=== PATIENT | female | born 1950 | race Caucasian/White ===

== ENCOUNTER 2017-07-27 05:44 | Day surgery (SDC) | payer MEDICARE, BC ==
[2017-07-26 10:32] VITALS: BMI 33.7
[2017-07-27] MEDS ORDERED: Thrombin 5000 UNITS/5 ML VIAL ONE (06:17)
[2017-07-27] MEDS ORDERED: Sodium Chloride 0.9% 10 ML ONE (06:17)
[2017-07-27] MEDS ORDERED: Bupivacaine/Epinephrine 0.25% 30 ML VIAL ONE (06:17)
[2017-07-27 06:35] LABS: Hematocrit 38.8 % (36.0-47.0); Mean Platelet Volume 7.8 fL (7.4-10.4); Red Blood Cell (RBC) Count 4.26 mill/uL (4.20-5.40); White Blood Cell (WBC) Count 9.6 thou/uL (4.8-10.8)
[2017-07-27] MEDS ORDERED: Phenylephrine 10 MG/NS 250 ML 0 ML ONE (06:39)
[2017-07-27] MEDS ORDERED: Famotidine/PF 20 mg/2ml Vial ONE (06:39)
[2017-07-27] MEDS ORDERED: Albumin 5% 0 ML ONE (06:39)
[2017-07-27 06:43] LABS: PTT 36.5 SEC (22.9-36.1)
[2017-07-27] MEDS ORDERED: Midazolam HCl 2 mg/2 ml Vial ONE (06:47)
[2017-07-27] MEDS ORDERED: CEFAZOLIN/Water 2 GM/20 ML SYRINGE ONE (06:47)
--- NOTE | 2017-07-27 06:55 | HP ---
: 1950 HISTORY OF PRESENT ILLNESS: Ms. Crum is a 67-year-old female that presents with low back pain over t he right SI joint, has symptoms of neurogenic claudication when walking and standing. Her legs feel weak when standing for too long. She denies any symptoms of bowel or bladder incontinence. The pain is made somewhat better with sitting and leaning forward and is exacerbated with standing and walkin g. She has completed physical therapy and has had injections in the lumbar spine with Dr. Cuadra t hat did not seem to give permanent relief. When she stands for over 10 minutes her legs begin to fee l weak, and she has to sit down. IMAGING: MRI of the lumbar spine at [facility], flexion and extension at [facility] REVIEW OF SYSTEMS: Ten-point review of systems completed, otherwise, negative unless stated in the a shahrzad HPI. PAST MEDICAL HISTORY: Migraine and seizure. PAST SURGICAL HISTORY: in 1974, hysterectomy in 2000, cholecystectomy, right carpal tunnel release 2015. HOSPITALIZATIONS: Hospitalizations for surgery. FAMILY HISTORY: Father is , diagnosed with diabetes and stroke. Mother is and sibl ings are . SOCIAL HISTORY: The patient denies tobacco use. She occasionally has some alcohol which is wine. D enies any drug use and has daily caffeine use. MEDICATIONS: 1. Amitriptyline HCL bedtime p.r.n. 2. Pantoprazole sodium 40 mg tablet, delayed release 2 tablets orally once daily. 3. Gabapentin 300 mg capsule 1 capsule orally 3 times a day. 4. Omeprazole 20 mg capsule delayed release 1 capsule orally once a day. 5. Naproxen 1-2 times per day. ALLERGIES: SULFA. PHYSICAL EXAMINATION: HEENT: Normocephalic, atraumatic. Hearing intact. Moist mucous membranes. Trachea is midline. EYES: Pupils are equal and reactive to light. Extraocular muscles are intact. Sclerae is white, no nicteric. PSYCHIATRIC: Normal mood and affect. CARDIOVASCULAR/PULMONARY: No cyanosis or clubbing noted. Intact pedal pulses bilaterally. MUSCULOSKELETAL: 5/5 strength in bilateral iliopsoas, quadriceps, hamstrings, right tibialis anterio r, extensor hallucis longus. Diminished sensory deficits bilaterally in the L5 dermatome. Tender to palpation over the right SI joint. RESPIRATORY: The patient has bilateral symmetric chest rise. Appears to be in no shortness of breat h. NEUROLOGIC: Cranial nerves II-XII are grossly intact. Speech is fluent. She answers MY questions a ppropriately. She has an antalgic gait and station. ASSESSMENT: 1. Neurogenic claudication due to lumbar spinal stenosis. 2. Bilateral sacroiliitis. PLAN: Dr. Garcia offered a lumbar L4-L5 microdiskectomy to help relieve the pain in her legs. We discussed risks, benefits and possible complications of surgery. Ms. Crum is fully aware of the ris k and is willing to proceed with the surgery.
[2017-07-27] MEDS ORDERED: Fentanyl 250 MCG/5 ML VIAL ONE (06:57)
[2017-07-27] MEDS ORDERED: Ketorolac Tromethamine 30 MG/ML VIAL ONE (09:28)
[2017-07-27] MEDS ORDERED: Fentanyl 100 MCG/2 ML VIAL ONE (10:05)
--- NOTE | 2017-07-27 10:57 | OP ---
DATE OF PROCEDURE: 07/27/2017 SURGEON: Livia Garcia M.D. NEWS GATHERING TECHNICIAN: Fermin Anaya PA-C. PREOPERATIVE INDICATION: Treat pain, prevent neurological deterioration. PREOPERATIVE DIAGNOSES: Intervertebral disk herniation L4-L5 with spinal stenosis and left-sided L5 radiculopathy. POSTOPERATIVE DIAGNOSES: Intervertebral disk herniation L4-L5 with spinal stenosis and left-sided L5 radiculopathy. OPERATIVE PROCEDURE: Decompressive laminectomy, medial facetectomy, and microdiskectomy bilateral L4 -L5, operating microscope. PREOPERATIVE MEDICATIONS: Ancef 2 grams IV. DRAIN NUMBER: Zero. DRAIN TYPE: None. OPERATIVE DICTATION: The patient was brought to the operating room. General endotracheal anesthesia was induced. The patient was positioned prone on the operating table with her chest and hips suppor didi by gel-filled chest rolls. A lateral fluoro radiograph was used to plan our incision. The lumba r skin was sterilely prepped and draped and we opened with a 10 blade knife. We controlled bleeding with bipolar cautery. We dissected through subcutaneous tissues to the thoracodorsal fascia. We inc ised the fascia in the midline and reflected the paraspinal muscles off the spinous process and henry a of L4 and L5. We took a lateral fluoro radiograph to confirm the levels upon which we were operati ng. Then, using an Adson rongeur to remove the spinous process of L4 and the superior portion of L5. Kerrison rongeurs were used to fashion a laminectomy, we widened our laminectomy defect, performing a partial medial facetectomies on both sides. We undermined the lateral recesses with Kerrison kt eurs and brought the operating microscope into the field. Under microscopic magnification using micr osurgical techniques, we removed the remainder of the yellow ligament. We identified the thecal sac and the traversing and exiting L5 nerve roots. We carefully retracted the nerve root medially from t he left side and found an intervertebral disk bulge in the ventral epidural space. We incised the di sk and removed disk contents using curettes and pituitary rongeurs. At the completion of our diskect tolu, the dura was no longer stretched. We visualized the intervertebral disks from both the left and the right side and this was a free and not causing any more stretch of any neural elements. We irri gated copiously with bacitracin irrigation. We performed small foraminotomies over the exiting L5 ne rve roots. We irrigated once again with bacitracin irrigation, infused local anesthetic in the kristopher rosario muscles. We closed the wound in anatomic layers. We applied a sterile dressing. This was a c lean case and no contamination.
--- NOTE | 2017-07-27 12:39 | EKG ---
Test Reason : PREOP Blood Pressure : / mmHG Vent. Rate : 075 BPM Atrial Rate : 075 BPM P-R Int : 186 ms QRS Dur : 080 ms QT Int : 388 ms P-R-T Axes : 049 -47 030 degrees QTc Int : 433 ms Normal sinus rhythm Left axis deviation Low voltage QRS Inferior infarct , age undetermined cannot be excluded Abnormal ECG No previous ECGs available Confirmed by JENNIFER RAMOS ([id number]) on 07/27/2017 12:38:59 PM Referred By: CELINE Confirmed By:JENNIFER RAMOS
[2017-07-27] MEDS ORDERED: Propofol 200 MG/20 ML VIAL ONE (15:19)
[2017-07-27] MEDS ORDERED: PHENYLEPHRINE-NS 100 MCG/ML 10 ML SYRINGE ONE (15:19)
[2017-07-27] MEDS ORDERED: Glycopyrrolate 0.2 MG/ML 5 ML SYRINGE ONE (15:19)
[2017-07-27] MEDS ORDERED: Dexamethasone 20 MG/5 ML VIAL ONE (15:19)
[2017-07-27] MEDS ORDERED: ePHEDrine/0.9% NaCl/PF SYRINGE 50 mg/10 ml ONE (15:19)
[2017-07-27] MEDS ORDERED: Vecuronium 10 MG VIAL ONE (15:19)
[2017-07-27] MEDS ORDERED: Lidocaine 1% PF 5 ML VIAL ONE (15:19)
[2017-07-27] MEDS ORDERED: Ondansetron HCl/PF 4 MG/2 ML Vial ONE (15:19)
== END 2017-07-27 11:55 | disposition home or self-care (01) ==
LOC: SDC 05:44
PROVIDERS: ATTEND Neurological Surgery
PROC: 0ST20ZZ Resection of Lumbar Vertebral Disc, Open Approach (ICD-10-PCS; principal; 2017-07-27)
PROC: 01NB0ZZ Release Lumbar Nerve, Open Approach (ICD-10-PCS; 2017-07-27)
DX: M51.16 Intervertebral disc disorders with radiculopathy, lumbar region (principal); M48.061 Spinal stenosis, lumbar region without neurogenic claudication; M06.9 Rheumatoid arthritis, unspecified; G43.909 Migraine, unspecified, not intractable, without status migrainosus; R56.9 Unspecified convulsions; M45.9 Ankylosing spondylitis of unspecified sites in spine; Z87.891 Personal history of nicotine dependence; Z79.899 Other long term (current) drug therapy; Z88.2 Allergy status to sulfonamides; Z82.3 Family history of stroke; Z83.3 Family history of diabetes mellitus; Z90.710 Acquired absence of both cervix and uterus; Z90.722 Acquired absence of ovaries, bilateral; Z90.49 Acquired absence of other specified parts of digestive tract; Z98.890 Other specified postprocedural states
CPT/HCPCS: 76001; 85027; 85610; 85730; 93005; 93010; 96374; A4216; J0131; J1100; J1885; J2001; J2250; J2405; J2704; J3010; J3370; J3490; P9045; S0028